=== PATIENT | male | born 1975 | race African-American/Black ===

== ENCOUNTER 2016-12-07 21:10 | Emergency (ER) | payer SELFPAY ==
[~2016-12-07] VITALS: Ht 177.8 cm; Wt 70.0 kg
[2016-12-07 21:12] VITALS: BP 135/95; PULSE 96; RESP 16; TEMP 97.4; O2SAT 98
--- NOTE | 2016-12-07 22:48 | PD ---
HPI Chief Complaint: Back/ Neck Pain or Injury Time Seen by Provider: 22:44 Travel History International Travel<30 days: No Contact w/Intl Traveler<30days: No Traveled to known affect area: No History of Present Illness HPI Patient comes in complaining of back pain ongoing for approximately a year ago that got worse 2 days ago after picking up some laundry. Patient denies doing anything for this. Denies anything making it better. Pain is worse with certain movement. Denies any fevers, IV drug use, numbness or tingling, loss of bowel or bladder, trauma, chest pain, abdominal pain, or shortness of breath. Patient denies being evaluated for this previously. 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 Pain is primarily in his lower back and is described as aching/spasming like in nature that occasionally radiates down his legs. PFSH Past Medical History Medical History: Denies Significant Hx Diminished Hearing: No Immunizations Current: Yes Tetanus Vaccination: < 5 Years Influenza Vaccination: No Social History Alcohol Use: Yes (1-2 WEEK) Tobacco Use: Yes (2 PACKS PER WEEK) Substance Use: Yes (marijuana) Allergies-Medications (Allergen,Severity, Reaction): Coded Allergies: No Known Allergies (Verified , 12/07/16) Reported Meds & Prescriptions Reported Meds & Active Scripts Active Naprosyn (Naproxen) 500 Mg Tab 500 Mg PO Q12HR PRN Flexeril (Cyclobenzaprine HCl) 10 Mg Tab 10 Mg PO Q8HR PRN Review of Systems Except as stated in HPI: all other systems reviewed are Neg Physical Exam Narrative GENERAL: Well-developed, well nourished, in no acute distress, and non-ill appearing. Patient easily moving around the bed getting up and down without any noticeable discomfort. SKIN: Warm and dry. HEAD: Atraumatic. Normocephalic. EYES: Pupils equal and round. EOMI. No scleral icterus. No injection or drainage. ENT: No nasal bleeding or discharge. Mucous membranes pink and moist. NECK: Trachea midline. Supple. No nuclear rigidity. RESPIRATORY: No accessory muscle use. No respiratory distress. MUSCULOSKELETAL: No obvious deformities. No clubbing. No cyanosis. No edema. Full range of motion. No tenderness crepitus or midline lumbar spine. Straight leg test negative bilaterally. NEUROLOGICAL: Awake and alert. No obvious cranial nerve deficits. Motor grossly within normal limits. Normal speech. PSYCHIATRIC: Appropriate mood and affect; insight and judgment normal. Data Data Last Documented VS Vital Signs Date Time Temp Pulse Resp B/P Pulse Ox O2 Delivery O2 Flow Rate FiO2 12/07/16 21:12 97.4 96 16 135/95 98 Room Air MDM Medical Decision Making Medical Screen Exam Complete: Yes Emergency Medical Condition: No Differential Diagnosis Fracture, strain, contusion, other Narrative Course The patient presented complaining of back pain. There was no history of recent fall or trauma. There was no evidence to support genitourinary etiology. There is also no evidence to suggest vascular pathology such as AAA dissection. No fevers or other evidence to suspect infectious processes, abscess, osteomyelitis etc. The patients neurological exam is normal with normal motor and sensory. There is no saddle paresthesias reported and no bowel or bladder incontinence or retention. I suspect the pain is mechanical in nature. Clinical suspicion, plan of care and management was discussed with the patient. The patient was instructed to follow up with their health care provider. The patient was also instructed to return if the pain worsened, changed, or developed weakness or bowel or bladder trouble. The patient agreed with plan. Patient in no obvious distress upon re-evaluation. Patient was asked if they wanted to speak to my attending, which the patient did not wish to do at this time. Any questions/concerns in reference to patient diagnosis/condition discussed and clarified prior to patient's discharge. Reinforced sheer importance of close follow up with patient's primary physician or primary care clinic. Instructed patient to return to ED immediately, if symptoms return/ worsen. Pt showed understanding of above instructions. Further instructions and recommendations were detailed in discharge paperwork. Pt ambulated without difficulty out of ED at discharge. Diagnosis Primary Impression: Low back pain Qualified Code: M54.5 - Chronic low back pain, unspecified back pain laterality, with sciatica presence unspecified Referrals: Sabino Burr MD [facility] Patient Instructions: Back Pain (ED), Chronic Back Pain (ED), General Instructions Additional Instructions: Follow-up with your primary care physician and/or orthopedics in 3-5 days for reevaluation. Take all medication as prescribed. Return to the emergency department if symptoms get worse. Med/Other Pt SpecificInfo: Prescription(s) given Scripts Naproxen (Naprosyn)500 Mg [id number] Mg PO Q12HR PRN (PAIN SCALE 1 TO 10) #14 TAB Ref 0 Prov:Nehal Lubin DO 12/07/16 Cyclobenzaprine (Flexeril)10 Mg Tab10 Mg PO Q8HR PRN (MUSCLE PAIN) #15 TAB Ref 0 Prov:Nehal Lubin DO 12/07/16 Disposition: 01 DISCHARGE HOME Condition: Stable Boom Amato Dec 07, 2016 22:48
[2016-12-07] MEDS ORDERED: CYCL1TAB29 PO (22:49)
[2016-12-07] MEDS ORDERED: NAPR500 PO (22:49)
== END 2016-12-07 23:25 | disposition home or self-care (01) ==
LOC: NEPB 21:10
DX: M54.5 Low back pain (principal); F17.210 Nicotine dependence, cigarettes, uncomplicated
CPT/HCPCS: 99283

== ENCOUNTER 2016-12-10 09:04 | Emergency (ER) | payer SELFPAY ==
[~2016-12-10] VITALS: Ht 177.8 cm; Wt 68.0 kg
[~2016-12-10 09:04] MED LIST: CYCL1TAB29 PO; NAPR500 PO
[2016-12-10 09:07] VITALS: BP 141/87; PULSE 55; RESP 15; TEMP 98.1; O2SAT 98
--- NOTE | 2016-12-10 09:48 | PD ---
HPI Chief Complaint: Back/ Neck Pain or Injury Time Seen by Provider: 09:48 Travel History International Travel<30 days: No Contact w/Intl Traveler<30days: No Traveled to known affect area: No History of Present Illness HPI 40-year-old male presents to the emergency Department with complaint of worsening low back pain over the past few days. He said he was seen here few days ago and was given prescriptions for pain and muscle relaxers but he has not picked him up from the pharmacy because he has not gotten paid and didn't have money to pick him up. Reports he symptoms have been going on for the past few months with worsening of the past few days. He denies injury, strain, heavy lifting. Denies encopresis, incontinence, saddle anesthesias. Although he does report that he has been waking up after urinating on himself at night for about year now. He denies any EtOH or drug abuse. Denies IV drug use. Denies cancer. Denies fever, chills, nausea, vomiting, abdominal pain. Reports paresthesias to the left leg which is also worsened over the past few days. He says his left leg feels like it is a heavy block. Pain is worse with standing up straight and certain movements. Pain is midline lower back. He has not taken any medications or tried any treatments to alleviate his symptoms. No known allergies. Does not have an established primary care provider. No other modifying factors or associated signs and symptoms. PFSH Past Medical History Diminished Hearing: No Immunizations Current: Yes Social History Alcohol Use: Yes (1-2 WEEK) Tobacco Use: Yes (2 PACKS PER WEEK) Substance Use: Yes (marijuana) Allergies-Medications (Allergen,Severity, Reaction): Coded Allergies: No Known Allergies (Verified , 12/10/16) Reported Meds & Prescriptions Reported Meds & Active Scripts Active Naprosyn (Naproxen) 500 Mg Tab 500 Mg PO Q12HR PRN Flexeril (Cyclobenzaprine HCl) 10 Mg Tab 10 Mg PO Q8HR PRN Review of Systems Except as stated in HPI: all other systems reviewed are Neg Physical Exam Narrative GENERAL: Well-nourished, well-developed male patient, in no acute distress SKIN: Warm and dry. HEAD: Atraumatic. Normocephalic. EYES: Pupils equal and round. No scleral icterus. No injection or drainage. ENT: Mucosa pink and moist. Airway patent. NECK: Trachea midline. CARDIOVASCULAR: Regular rate and rhythm. No murmur appreciated. RESPIRATORY: No accessory muscle use. Sounds clear and equal bilaterally. No retractions or tachypnea. GASTROINTESTINAL: Abdomen soft, non-tender, nondistended. Positive bowel sounds. No hepato-splenomegaly, or palpable masses. No guarding. MUSCULOSKELETAL: Bilateral lower extremities supple and non-tense with 2+ pedal pulses and sensory intact; with full range of motion and 5/5 strength. Patient reports sensation to touch to the left lower extremity is different than the right. Active dorsiflexion and extension of bilateral feet. Bilateral straight leg raise is positive for low back pain. Ambulatory with limp to the left lower extremity. Sitting up in bed at 90. No obvious deformities. No clubbing. No cyanosis. No edema. BACK: Midline point tenderness on palpation of the lumbar spine. No midline point tenderness on palpation of the thoracic spine. Tenderness on palpation of bilateral iliosacral areas. No obvious deformities. NEUROLOGICAL: Awake and alert. Oriented 3. No obvious cranial nerve deficits. Motor grossly within normal limits. Normal speech. Moves all extremities. 5/5 strength to all extremities. Sensory intact. PSYCHIATRIC: Appropriate mood and affect; insight and judgment normal. Data Data Last Documented VS Vital Signs Date Time Temp Pulse Resp B/P Pulse Ox O2 Delivery O2 Flow Rate FiO2 12/10/16 09:07 98.1 55 15 141/[address] Lumb Spine W/O Contrast (12/10/16 ) Methocarbamol (Robaxin) (12/10/16 10:00) Ibuprofen (Motrin) (12/10/16 10:00) MDM Medical Decision Making Medical Screen Exam Complete: Yes Emergency Medical Condition: Yes Medical Record Reviewed: Yes Differential Diagnosis Lumbar radiculopathy, sciatica, low back pain Narrative Course 40-year-old male with low back pain. He was seen on December 07 and was given prescriptions for Naprosyn and Flexeril which he has not picked up from the pharmacy. He reports incontinence of urine at night while sleeping but denies incontinence of urine during the day or encopresis, or saddle anesthesias. He does have midline point tenderness on palpation of the lumbar spine. I will obtain CT scan of the low back secondary to physical exam findings and complaints, although the patient states the back pain has been going on for a while. CT lumbar spine, ibuprofen, Robaxin ordered. 1127: CT lumbar spine concludes: Last 24 hours Impressions [address] 12/10/16 0000 Signed Impressions: Service Date/Time: , December 10, 2016 10:38 - CONCLUSION: 1. Degenerative changes at L4-L5 and L5-S1 with neural foraminal impingement of the right L4 and right L5 nerves as well as the right S1 nerve within the lateral recess. 2. Bilateral pars defects with minimal grade 1 anterolisthesis of L5 on S1. 3. Scoliosis. Jorge Vela Jr., MD Patient provided with a copy of the CT and the CT reports were discussed with the patient. Instructed patient to follow up with primary care provider. Patient verbalizes understanding and agreement with treatment plan. Patient is medically cleared and stable for discharge. Discussed reasons to return to the emergency department. Instructed patient to follow up with primary care provider. Patient agrees with treatment plan. The patients vital signs are stable and the patient is stable for outpatient follow-up and treatment. Patient discharged home, stable and in no acute distress. Diagnosis Primary Impression: Low back pain Qualified Code: M54.40 - Midline low back pain with sciatica, sciatica laterality unspecified, unspecified chronicity Additional Impression: Lumbar radiculopathy Referrals: Primary Care Physician Patient Instructions: Acute Low Back Pain (ED), General Instructions, Lower Back Exercises (ED), Sciatica (ED) Departure Forms: Tests/Procedures, Work Release Enter return to work date: Dec 14, 2016 Additional Instructions: Continue medications as previously prescribed Tylenol or ibuprofen as directed and as needed to reduce pain Get adequate rest Ice and/or heating pad to affected area to reduce pain Avoid aggravating activity; increase activity as tolerated Follow-up with primary care provider Return to the emergency department immediately with worsening symptoms Med/Other Pt SpecificInfo: No Change to Meds, No Meds Exist/No RX given Disposition: 01 DISCHARGE HOME Condition: Stable Yulia Arredondo Dec 10, 2016 09:48
[2016-12-10] MEDS ORDERED: METHOCARBAMOL 500 MG TAB PO ONE (10:00)
[2016-12-10] MEDS ORDERED: IBUPROFEN 800 MG TAB PO ONE (10:00)
--- NOTE | 2016-12-10 11:15 | RADRPT ---
EXAM DATE/TIME: 12/10/2016 10:38 [facility] COMPARISON: No previous studies available for comparison. INDICATIONS : Lower back pain; no recent trauma. RADIATION DOSE: 35.39 CTDIvol (mGy) MEDICAL HISTORY : None SURGICAL HISTORY : None. ENCOUNTER: Initial ACUITY: 1 yr PAIN SCALE: 5/10 LOCATION: lower back. TECHNIQUE: Volumetric scanning of the lumbar spine was performed. Multiplanar reconstructions in the sagittal, coronal and oblique axial planes were performed. Using automated exposure control and adjustment of the mA and/or kV according to patient size, radiation dose was kept as low as reasonably achievable t o obtain optimal diagnostic quality images. FINDINGS: VERTEBRAE: Normal vertebral body height. Multiple Schmorl's nodes are seen scattered throughout the lumbar spine . Sclerotic changes seen involving the endplates of L4 and L5. No bony destruction. Bilateral pars de fects seen at L5 with a minimal grade 1 anterolisthesis. ALIGNMENT: A scoliotic curvature is seen with concavity towards the patient's right centered at L3. Minimal grad e 1 anterolisthesis of L5 on S1. T12-L1: The thecal sac has a normal diameter. No evidence of disc bulge or protrusion. The neural foramina are patent bilaterally. L1-L2: The thecal sac has a normal diameter. No evidence of disc bulge or protrusion. The neural foramina are patent bilaterally. L2-L3: The thecal sac has a normal diameter. No evidence of disc bulge or protrusion. The neural foramina are patent bilaterally. L3-L4: The thecal sac has a normal diameter. No evidence of disc bulge or protrusion. The neural foramina are patent bilaterally. L4-L5: There is considerable disc space narrowing with anterior and posterior osteophyte production. There i s flattening of the ventral portion of the thecal sac with narrowing of the lateral recesses bilatera lly. There is narrowing of the neural foramina bilaterally with impingement of both L4 nerves more pr onounced on the right. Anterior to posterior dimension of the central canal in the midline is 12 mm. Mild hypertrophic changes of the facets. L5-S1: There is a broad-based disc bulge eccentric to the right posterior-lateral area with abutment of the L5 nerve within the neural foramen as well as the S1 nerve within the lateral recess. Left lateral re cess, central canal, and left neural foramen remain patent. Mild hypertrophic changes of the facets. CONCLUSION: 1. Degenerative changes at L4-L5 and L5-S1 with neural foraminal impingement of the right L4 and righ t L5 nerves as well as the right S1 nerve within the lateral recess. 2. Bilateral pars defects with minimal grade 1 anterolisthesis of L5 on S1. 3. Scoliosis. Jorge Vela Jr., MD on December 10, 2016 at 11:07 Board Certified Radiologist. This report was verified electronically.
== END 2016-12-10 11:45 | disposition home or self-care (01) ==
LOC: NEPB 09:04
DX: M54.16 Radiculopathy, lumbar region (principal); F17.210 Nicotine dependence, cigarettes, uncomplicated
CPT/HCPCS: 72131